=== PATIENT | female | born 2005 | race Caucasian/White ===

== ENCOUNTER 2024-02-27 08:45 | Outpatient (CLI) | payer BC | END 2024-02-27 08:46 | disposition home or self-care (01) | LOC: CSHCT 08:45 | PROVIDERS: ATTEND Internal Medicine Gastroenterology | DX: R10.9 Unspecified abdominal pain (principal); E73.9 Lactose intolerance, unspecified; F41.9 Anxiety disorder, unspecified; K59.00 Constipation, unspecified; N83.201 Unspecified ovarian cyst, right side | CPT/HCPCS: 74177 ==